=== PATIENT | female | born 1990 | race Caucasian/White ===

== ENCOUNTER 2019-03-02 11:23 | Emergency (ER) | payer OTHER ==
--- NOTE | 2019-03-02 11:34 | ER Document Report ---
ED Medical Screen (RME) - General Chief Complaint: Vomiting Stated Complaint: VOMITING,RECTAL BLEEDING Time Seen by Provider: 03/02/19 11:29 Mode of Arrival: Ambulatory Information source: Patient Notes: 28-year-old female presented to ED for complaint of nausea since yesterday vomiting since 2 AM this morning. She states she has had 8 or 9 emesis today. She states she also has had some medium to hard stools today and a large amount of red blood. She states she did have a history of a hernia and went to a therapist asst and they put a band around the hemorrhoid about 3 months ago the ba nd is now gone and she does not see a hemorrhoid but she did have a large amount of blood when she had her stool today. She states she does have some intermittent cramping in the lower abdomen. She smokes 1 or 2 cigarettes a day occasionally drinks no drugs. Her abdomen is soft minimal tenderness to the pelvic area but none to the abdomen bowel sounds are present. I have greeted and performed a rapid initial assessment of this patient. A comprehensive ED assessment and evaluation of the patient, analysis of test results and completion of medical decision making process will be conducted by an additional ED providers.
[2019-03-02 11:57] LABS: ABSOLUTE LYMPHOCYTES (AUTO) 2.4 10^3/uL (0.5-4.7); ABSOLUTE MONOCYTES (AUTO) 0.6 10^3/uL (0.1-1.4); ABSOLUTE NEUT (AUTO) 8.4 10^3/uL (1.7-8.2); BASOPHILS % (AUTO) 0.4 % (0-2); EOSINOPHILS % (AUTO) 0.4 % (0-6); HEMATOCRIT 43.8 % (36.0-47.0); HEMOGLOBIN 15.1 g/dL (12.0-15.5); LYMPHOCYTES % (AUTO) 20.8 % (13-45); MEAN CORPUSCULAR HEMOGLOBIN 31.2 pg (27.0-33.4); MEAN CORPUSCULAR HGB CONC 34.6 g/dL (32.0-36.0); MEAN CORPUSCULAR VOLUME 90 fl (80-97); MONOCYTES % (AUTO) 4.8 % (3-13); PLATELET COUNT 309 10^3/uL (150-450); RED BLOOD COUNT 4.85 10^6/uL (3.72-5.28); RED CELL DISTRIBUTION WIDTH 12.6 % (11.5-14.0); SEGMENTED NEUTROPHILS % (AUTO) 73.6 % (42-78); TOTAL CELLS COUNTED % (AUTO) 100 %; WHITE BLOOD COUNT 11.5 10^3/uL (4.0-10.5)
[2019-03-02 12:02] LABS: APPEARANCE,URINE CLEAR; BILIRUBIN,URINE NEGATIVE (NEGATIVE); COLOR,URINE YELLOW; GLUCOSE, URINE NEGATIVE (NEGATIVE); KETONES,URINE NEGATIVE (NEGATIVE); PROTEIN,URINE NEGATIVE (NEGATIVE); URINE SPECIFIC GRAVITY 1.021; UROBILINOGEN,URINE NEGATIVE mg/dL (<2.0)
[2019-03-02 12:17] LABS: ALBUMIN 5.2 g/dL (3.5-5.0); ALKALINE PHOSPHATASE 63 U/L (38-126); ANION GAP 15 (5-19); ASPARTATE AMINO TRANSFERASE 33 U/L (14-36); BILIRUBIN,DIRECT 0.1 mg/dL (0.0-0.4); BILIRUBIN,TOTAL 0.8 mg/dL (0.2-1.3); BLOOD UREA NITROGEN 12 mg/dL (7-20); CARBON DIOXIDE 24 mmol/L (22-30); CHLORIDE 106 mmol/L (98-107); GLUCOSE 92 mg/dL (75-110); POTASSIUM 4.5 mmol/L (3.6-5.0); TOTAL PROTEIN 8.6 g/dL (6.3-8.2)
--- NOTE | 2019-03-02 12:56 | RADIOLOGY REPORT (SQ) ---
EXAM DESCRIPTION: U/S NON-OB PELVIS TV W/O DOP COMPLETED DATE/TIME: 03/02/2019 12:34 pm REASON FOR STUDY: pelvic pain worse left hx pcos COMPARISON: None. TECHNIQUE: Dynamic and static grayscale images acquired of the pelvis via transvaginal approach and recorded on PACS. Additional selected color Doppler and spectral images recorded. LIMITATIONS: None. FINDINGS: UTERUS: Contour normal. No mass. ENDOMETRIAL STRIPE: IUD. No focal or generalized thickening. No masses. CERVIX: No nabothian cysts. RIGHT OVARY AND DOPPLER: Normal size. 1.8 cm Cyst. No worrisome masses. Normal arterial vascular fl ow without evidence for torsion. LEFT OVARY AND DOPPLER: Normal size. No worrisome masses. Normal arterial vascular flow without evide nce for torsion. FREE FLUID: None noted. OTHER: No other significant finding. IMPRESSION: Small cyst right ovary. TECHNICAL DOCUMENTATION: JOB ID: [id number] [employer]- All Rights Reserved Rev-08/24 Reading location - IP/workstation name: [email or web address]
--- NOTE | 2019-03-02 13:08 | ER Document Report ---
ED General - General Chief Complaint: Nausea/Vomiting Stated Complaint: VOMITING,RECTAL BLEEDING Time Seen by Provider: 03/02/19 11:29 Mode of Arrival: Ambulatory Information source: Patient Notes: 28-year-old female presents emergency department with complaints of some bilateral abdominal cramping that started yesterday. Reports she went to an arena in [place] last night ate some questionable pizza. Woke up at approximately 0200 this morning with nausea and vomiting. Reports she has vomited at least 8 times today. Last emesis was approximately 11:00 today. Patient is sitting on the exam bed drinking water at this time. Reports she feels better. She reports history of left ovarian cyst. Also reports of hemorrhoids with banding approximately 3 months ago. Last menstrual period was 1 month ago. Denies pain with void denies vaginal discharge. TRAVEL OUTSIDE OF THE [place] IN LAST 30 DAYS: No - HPI Onset: This morning Onset/Duration: Waxing and waning Quality of pain: Cramping Associated symptoms: Nausea, Vomiting Exacerbated by: Denies Relieved by: Denies Similar symptoms previously: No Recently seen / treated by doctor: No - Related Data Allergies/Adverse Reactions: No Known Allergies Allergy (Verified 03/02/19 11:33) Past Medical History - General Information source: Patient Last Menstrual Period: 1 month ago - Social History Smoking Status: Current Every Day Smoker Chew tobacco use (# tins/day): No Frequency of alcohol use: Social Drug Abuse: None Lives with: Family Family History: Malignancy Patient has suicidal ideation: No Patient has homicidal ideation: No Renal/ Medical History: Reports: Hx Ovarian Cysts Psychiatric Medical History: Reports: Hx Bipolar Disorder Past Surgical History: Reports: Other - Hemorrhoids banded Review of Systems - Review of Systems Notes: Review HPI for review of systems., All other systems negative Physical Exam - Vital signs Vitals: Temp Pulse Resp BP Pulse Ox 98.0 F 102 H 16 151/82 H 98 03/02/19 11:26 03/02/19 11:26 03/02/19 11:26 03/02/19 11:26 03/02/19 11:26 - General General appearance: Appears well, Alert In distress: None - HEENT Head: Normocephalic Eyes: Normal Conjunctiva: Normal Extraocular movements intact: Yes Mucous membranes: Moist Neck: Normal, Supple. No: Lymphadenopathy - Respiratory Respiratory status: No respiratory distress Chest status: Nontender Breath sounds: Normal Chest palpation: Normal - Cardiovascular Rhythm: Regular Heart sounds: Normal auscultation Murmur: No - Abdominal Inspection: Normal Distension: No distension Bowel sounds: Normal Tenderness: Nontender Organomegaly: No organomegaly - Rectal Tenderness: Yes Stool: Heme negative Hemorrhoids: None - Back Back: Normal. No: CVA tenderness - Extremities General upper extremity: Normal ROM, Normal strength General lower extremity: Normal ROM, Normal strength - Neurological Neuro grossly intact: Yes Cognition: Normal Orientation: AAOx4 Christina Coma Scale Eye Opening: Spontaneous [place] Coma Scale Verbal: Oriented [place] Coma Scale Motor: Obeys Commands Christina Coma Scale Total: 15 Speech: Normal - Psychological Associated symptoms: Normal affect, Normal mood - Skin Skin Temperature: Warm Skin Moisture: Dry Skin Color: Normal Course - Re-evaluation Re-evalutation: 03/02/19 12:59 28-year-old female presents with complaints of nausea and vomiting bilateral abdominal pain. Reports her abdominal pain started yesterday. Reports she woke up at approximately 2:00 this morning started vomiting. Has vomited at least 8 times today. Patient is now drinking p.o. fluids without problems denies nausea denies abdominal pain. Also reports she noted blood on her stool and in the water today. reports normal consistency of stool. Did not strain. Stool negative for heme. Reports she recently had hemorrhoids banded. She has not followed up with her GI Doctor, Dr. Young. Labs unremarkable ultrasound shows right ovarian cyst. Stool is negative for blood. Patient is drinking water at the bedside. Suspect patient may have had a reaction to the pizza she ate last night. She is feeling better. She was adv ised on clear liquids advance as tolerated. She was also advised to follow-up with Dr. Young to discuss the blood she noticed. She was discharged home with a work note and Zofran in case she became nauseated again. She was also instructed to return the emergency department for return of symptoms concerns pain. She verbalized understanding to all instructions. 03/02/19 11:36 03/02/19 11:36 MCV 90 fl (80-97) 03/02/19 11:36 MCH 31.2 pg (27.0-33.4) 03/02/19 11:36 MCHC 34.6 g/dL (32.0-36.0) 03/02/19 11:36 RDW 12.6 % (11.5-14.0) 03/02/19 11:36 Seg Neutrophils % 73.6 % (42-78) 03/02/19 11:36 Chloride 106 mmol/L (98-107) 03/02/19 11:36 Carbon Dioxide 24 mmol/L (22-30) 03/02/19 11:36 Anion Gap 15 (5-19) 03/02/19 11:36 Est GFR ( Amer) > 60 (>60) 03/02/19 11:36 Glucose 92 mg/dL (75-110) 03/02/19 11:36 Calcium 11.0 mg/dL (8.4-10.2) H 03/02/19 11:36 Total Bilirubin 0.8 mg/dL (0.2-1.3) 03/02/19 11:36 AST 33 U/L (14-36) 03/02/19 11:36 Alkaline Phosphatase 63 U/L (38-126) 03/02/19 11:36 Total Protein 8.6 g/dL (6.3-8.2) H 03/02/19 11:36 Albumin 5.2 g/dL (3.5-5.0) H 03/02/19 11:36 Serum HCG, Qual NEGATIVE (NEGATIVE) 03/02/19 11:36 Urine Color YELLOW 03/02/19 11:36 Urine Appearance CLEAR 03/02/19 11:36 Urine pH 6.0 (5.0-9.0) 03/02/19 11:36 Ur Specific Waucoma 1.021 03/02/19 11:36 Urine Protein NEGATIVE mg/dL (NEGATIVE) 03/02/19 11:36 Urine Glucose (UA) NEGATIVE mg/dL (NEGATIVE) 03/02/19 11:36 Urine Ketones NEGATIVE mg/dL (NEGATIVE) 03/02/19 11:36 Urine Blood NEGATIVE (NEGATIVE) 03/02/19 11:36 Urine RBC (Auto) 2 /HPF 03/02/19 11:36 Transvaginal US 03/02/19 11:35 IMPRESSION: Small cyst right ovary. 03/02/19 13:18 Dictation of this chart was performed using voice recognition software; therefore, there may be some unintended grammatical errors. - Vital Signs Vital signs: Temp Pulse Resp BP Pulse Ox 98.7 F 80 16 125/88 H 99 03/02/19 13:30 03/02/19 13:30 03/02/19 11:27 03/02/19 13:30 03/02/19 13:30 - Laboratory Result Diagrams: 03/02/19 11:36 03/02/19 11:36 Laboratory results interpreted by me: 03/02/19 03/02/19 11:36 11:36 WBC 11.5 H Absolute Neuts (auto) 8.4 H Calcium 11.0 H Total Protein 8.6 H Albumin 5.2 H - Diagnostic Test Radiology reviewed: Image reviewed, Reports reviewed Discharge - Discharge Clinical Impression: Abdominal pain Qualifiers: Abdominal location: unspecified location Qualified Code(s): R10.9 - Unspecified abdominal pain Nausea & vomiting Qualifiers: Vomiting type: unspecified Vomiting Intractability: non-intractable Qualified Code(s): R11.2 - Nausea with vomiting, unspecified Ovarian cyst Qualifiers: Laterality: right Qualified Code(s): N83.201 - Unspecified ovarian cyst, right side Condition: Stable Disposition: HOME, SELF-CARE Instructions: Abdominal Pain ([facility]), Antinausea Medication ([facility]), [employer] Distributor Doctors, Ovarian Cyst ([facility]), Vomiting ([facility]) Additional Instructions: *You have been evaluated for abdominal pain, nausea vomiting, ovarian cyst *Take medication as prescribed Clear liquids advance diet as tolerated *Follow up with a primary care provider within 1 week for recheck 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 Your blood pressure was elevated today. This may be because you were anxious, in pain or because you need medication. It is important to follow up with your primary care provider for full evaluation. Forms: Elevated Blood Pressure, Return to Work
[2019-03-02] MEDS ORDERED: ONDANSETRON ODT 4 MG TAB (6 TAB/ER DISP) PO PRN (13:10)
[2019-03-02 13:33] VITALS: BP 125/88
== END 2019-03-02 13:41 | disposition home or self-care (01) ==
LOC: ER 11:23
DX: R11.2 Nausea with vomiting, unspecified (principal); N83.201 Unspecified ovarian cyst, right side; R10.30 Lower abdominal pain, unspecified; F17.200 Nicotine dependence, unspecified, uncomplicated; Z87.19 Personal history of other diseases of the digestive system; Z98.890 Other specified postprocedural states
CPT/HCPCS: 36415; 76830; 80053; 81001; 84703; 85025; 99284

== ENCOUNTER 2020-01-13 18:18 | Emergency (ER) | payer OTHER ==
--- NOTE | 2020-01-13 19:20 | ER Document Report ---
ED Medical Screen (RME) - General Chief Complaint: Vag Bleeding, +preg <12wks Stated Complaint: VAGINAL BLEEDING Time Seen by Provider: 01/13/20 19:04 TRAVEL OUTSIDE OF THE [place] IN LAST 30 DAYS: No - HPI Notes: 01/13/20 19:15 29-year-old female who is approximately 7 weeks , , lmp November 21 who had 2+ test in the last 2 weeks ago presents to the emergency room for 6 days of vaginal spotting and intermittent heavy bleeding. Patient was sent over by [facility] because her hCG levels on January 06 were 219 and her hCG levels on January 07 was 264, [facility] was concerned that her hCG was not doubling and with her vaginal bleeding that she may be experiencing ectopic . eports some scant left > right lower abdominal pain. Denies any chest pains or shortness of breath. she roughly goes between 1-2 pads a day I have greeted and performed a rapid initial assessment of this patient. A comprehensive ED assessment and evaluation of the patient, analysis of test resu lts and completion of the medical decision making process will be conducted by additional ED providers. PHYSICAL EXAMINATION: GENERAL: Well-appearing, well-nourished and in no acute distress. HEAD: Atraumatic, normocephalic. EYES: Pupils equal round extraocular movements intact, conjunctiva are normal. NECK: Normal range of motion CV: s1, s2 regular LUNGS: No respiratory distress abd: lower abd pain L>R, no cva tenderness appreciated - Related Data Allergies/Adverse Reactions: No Known Allergies Allergy (Verified 03/02/19 11:33) Past Medical History Renal/ Medical History: Reports: Hx Ovarian Cysts Psychiatric Medical History: Reports: Hx Bipolar Disorder Past Surgical History: Reports: Other - Hemorrhoids banded Physical Exam - Vital signs Vitals: Temp Pulse Resp BP Pulse Ox 98.3 F 88 16 133/66 H 99 01/13/20 18:36 01/13/20 18:36 01/13/20 18:36 01/13/20 18:36 01/13/20 18:36 Course - Vital Signs Vital signs: Temp Pulse Resp BP Pulse Ox 98.3 F 88 16 133/66 H 99 01/13/20 18:36 01/13/20 18:36 01/13/20 18:36 01/13/20 18:36 01/13/20 18:36
[2020-01-13 19:42] LABS: ABSOLUTE BASOPHILS # (AUTO) 0.1 10^3/uL (0.0-0.2); ABSOLUTE EOSINOPHILS # (AUTO) 0.2 10^3/uL (0.0-0.6); ABSOLUTE LYMPHOCYTES (AUTO) 3.2 10^3/uL (0.5-4.7); ABSOLUTE MONOCYTES (AUTO) 0.6 10^3/uL (0.1-1.4); ABSOLUTE NEUT (AUTO) 3.9 10^3/uL (1.7-8.2); BASOPHILS % (AUTO) 0.7 % (0-2); EOSINOPHILS % (AUTO) 2.4 % (0-6); HEMATOCRIT 37.1 % (36.0-47.0); HEMOGLOBIN 13.5 g/dL (12.0-15.5); LYMPHOCYTES % (AUTO) 40.4 % (13-45); MEAN CORPUSCULAR HGB CONC 36.4 g/dL (32.0-36.0); MEAN CORPUSCULAR VOLUME 91 fl (80-97); MONOCYTES % (AUTO) 7.1 % (3-13); PLATELET COUNT 252 10^3/uL (150-450); RED BLOOD COUNT 4.09 10^6/uL (3.72-5.28); RED CELL DISTRIBUTION WIDTH 12.3 % (11.5-14.0); SEGMENTED NEUTROPHILS % (AUTO) 49.4 % (42-78); TOTAL CELLS COUNTED % (AUTO) 100 %; WHITE BLOOD COUNT 7.9 10^3/uL (4.0-10.5)
[2020-01-13 19:50] LABS: AMORPHOUS SEDIMENT,URINE TRACE /HPF; APPEARANCE,URINE CLOUDY; BILIRUBIN,URINE NEGATIVE (NEGATIVE); COLOR,URINE YELLOW; GLUCOSE, URINE NEGATIVE (NEGATIVE); KETONES,URINE NEGATIVE (NEGATIVE); LEUKOCYTE ESTERASE,URINE NEGATIVE (NEGATIVE); NITRITE,URINE NEGATIVE (NEGATIVE); PROTEIN,URINE 30 mg/dL (NEGATIVE); UROBILINOGEN,URINE NEGATIVE mg/dL (<2.0)
[2020-01-13 19:53] LABS: ALBUMIN 4.5 g/dL (3.5-5.0); ALKALINE PHOSPHATASE 64 U/L (38-126); ANION GAP 10 (5-19); ASPARTATE AMINO TRANSFERASE 35 U/L (14-36); BILIRUBIN,DIRECT 0.2 mg/dL (0.0-0.4); BILIRUBIN,TOTAL 0.5 mg/dL (0.2-1.3); BLOOD UREA NITROGEN 19 mg/dL (7-20); CALCIUM 9.4 mg/dL (8.4-10.2); CARBON DIOXIDE 25 mmol/L (22-30); CHLORIDE 103 mmol/L (98-107); GLUCOSE 100 mg/dL (75-110); POTASSIUM 3.8 mmol/L (3.6-5.0); TOTAL PROTEIN 7.4 g/dL (6.3-8.2)
--- NOTE | 2020-01-13 21:54 | RADIOLOGY REPORT (SQ) ---
US PELVIS HISTORY: Early . Pelvic pain. COMPARISON: None. TECHNIQUE: Grayscale, color Doppler, and spectral Doppler ultrasound images of the pelvis were obtained. FINDINGS: The uterus is retroverted and measures 7.0 x 5.5 x 4.2 cm. No intrauterine gestation is identified. The cervix measures 2.3 cm and is closed. The endometrium measures 1.6 cm. Both ovaries are normal in size and contain normal follicles, with the right ovary measuring 3.4 x 2.6 cm and the left ovary measuring 2.7 x 1.8 cm. Normal color Doppler blood flow is seen in both ovaries. There is free fluid in the pelvic cul-de-sac and bilateral adnexa. IMPRESSION: 1. No intrauterine is seen. Correlate with beta hCG values and consider short-term follow-up ultrasound imaging. 2. Normal ovaries.
[2020-01-14] MEDS ORDERED: ACETAMINOPHEN 325 MG TABLET PO ONE (01:27)
--- NOTE | 2020-01-14 01:29 | ER Document Report ---
ED GI/ - General Chief Complaint: Vaginal Bleeding Stated Complaint: VAGINAL BLEEDING Time Seen by Provider: 01/13/20 19:04 Primary Care Provider: ADIEL LONG MD [ACTIVE STAFF] - Follow up tomorrow (Call tomorrow for an outpatient follow-up appointment.) Mode of Arrival: Ambulatory Information source: Patient Notes: 29-year-old female who states she is approximately 7 weeks 4 para 0 with recent in November presents to the emergency room with persistent vaginal bleeding. Patient states she was seen at [facility] on January 06 had a quant of 219 and states the ultrasound did not show an intrauterine . She followed up with [facility] on the third had a repeat quant when she just got the results of today of 264. She was referred to the emergency rule out ectopic. She is complaining of some mild left lower quadrant pain. States bleeding has been intermittent similar to a menstrual cycle. She currently does not have an SAL[employer] CL[employer]. TRAVEL OUTSIDE OF THE [place] IN LAST 30 DAYS: No - Related Data Allergies/Adverse Reactions: No Known Allergies Allergy (Verified 03/02/19 11:33) Past Medical History - General Information source: Patient - Social History Smoking Status: Current Every Day Smoker Chew tobacco use (# tins/day): No Frequency of alcohol use: Occasional Drug Abuse: Marijuana Family History: Malignancy Renal/ Medical History: Reports: Hx Ovarian Cysts Psychiatric Medical History: Reports: Hx Bipolar Disorder Past Surgical History: Reports: Other - Hemorrhoids banded Review of Systems - Review of Systems Constitutional: No symptoms reported EENT: No symptoms reported Cardiovascular: No symptoms reported Gastrointestinal: No symptoms reported Female Genitourinary: , Vaginal bleeding, Other - Left lower pelvic pain Skin: No symptoms reported Neurological/Psychological: No symptoms reported -: Yes All other systems reviewed and negative Physical Exam - Vital signs Vitals: Temp Pulse Resp BP Pulse Ox 98.3 F 88 16 133/66 H 99 01/13/20 18:36 01/13/20 18:36 01/13/20 18:36 01/13/20 18:36 01/13/20 18:36 - Notes Notes: GENERAL: Mild acute distress, non-toxic appearance. HEAD: Normal with no signs of head trauma. EYES: PERRLA, EOMI, conjunctiva normal, no discharge. EARS: Hearing grossly intact. NOSE: Normal. THROAT: Oropharynx is normal. NECK: Normal range of motion, no tenderness, supple, no lymphadenopathy, No adenopathy, no JVD. CHEST: Clear breath sounds bilaterally. No wheezes, rales, or rhonchi. CARDIAC: Regular rate and rhythm. S1 and S2, without murmurs, gallops, or rubs. VASCULAR: No Edema. Peripheral pulses normal and equal in all extremities. ABDOMEN: Normal and soft with no tenderness, no masses or pulsatile masses. No organomegaly. Positive bowel sounds x4. No CVA tenderness noted bilaterally. GASTROINTESTINAL: Bowel sounds normal GENITOURINARY: Patient refused pelvic exam LYMPATHTIC: No lymphadenopathy noted. MUSCULOSKELETAL: Good range of motion of all major joints. Extremities without clubbing, cyanosis or edema. NEUROLOGICAL: Alert and oriented x 3. No focal sensory or strength deficits. Speech normal. Follows commands appropriately. PSYCHIATRIC: Normal Affect, judgement and mood. SKIN: Normal appearance with no rashes or lesions. Course - Re-evaluation Re-evalutation: 01/14/20 01:26 Patient is resting comfortably with decreased pain. Reviewed all test results with patient. Ultrasound notes closed cervix. Patient refused pelvic exam. States she is only lightly bleeding at this time. Reviewed declining hCG G from January 09. Patient with O+ blood reviewed from previous records. Patient was counseled on the importance of outpatient follow-up with [facility] [facility] for decreasing hCG. On-call physician was provided. Tylenol as needed for pain. Patient was given strict return to the emergency room guidelines. Return for any new or worsening symptoms. All questions were answered. Patient verbalized understanding and agrees with plan of care. 01/14/20 01:27 01/14/20 02:06 - Vital Signs Vital signs: Temp Pulse Resp BP Pulse Ox 98.3 F 86 20 127/85 H 100 01/13/20 19:09 01/14/20 01:45 01/14/20 01:45 01/14/20 01:45 01/14/20 01:45 - Laboratory Result Diagrams: 01/13/20 19:22 01/13/20 19:22 Laboratory results interpreted by me: 01/13/20 01/13/20 01/13/20 19:22 19:22 19:22 MCHC 36.4 H ALT 41 H Beta HCG, Quant 229.88 H Urine Protein 30 H Urine Blood LARGE H Urine Ascorbic Acid 20 H - Diagnostic Test Radiology reviewed: Reports reviewed Discharge - Discharge Clinical Impression: Threatened miscarriage in early Condition: Stable Disposition: HOME, SELF-CARE Instructions: Threatened Miscarriage ([facility]) Additional Instructions: Tylenol as needed for pain. Outpatient follow-up with [facility] TE[facility] in 2 days as discussed. Return to the emergency room for any new or worsening symptoms. Forms: Return to Work Referrals: ADIEL LONG MD [ACTIVE STAFF] - Follow up tomorrow (Call tomorrow for an outpatient follow-up appointment.)
[2020-01-14 01:48] VITALS: BP 127/85
== END 2020-01-14 01:47 | disposition home or self-care (01) ==
LOC: ER 18:18
DX: O20.0 Threatened abortion (principal); R10.32 Left lower quadrant pain; O99.331 Smoking (tobacco) complicating pregnancy, first trimester; Z3A.01 Less than 8 weeks gestation of pregnancy
CPT/HCPCS: 36415; 76817; 80053; 81001; 84702; 85025; 86900; 86901; 99284

== ENCOUNTER 2020-01-23 12:28 | Day surgery (SDC) | payer OTHER ==
[~2020-01-23 12:28] MED LIST: GLYCOPYRROLATE 1 MG/5 ML VIAL ONE; METOCLOPRAMIDE HCL INJ/PF 10 MG/2 ML SDV ONE; NEOSTIGMINE METHYLSULFATE 10 MG/10 ML VIAL ONE; ROCURONIUM BROMIDE INJ 50 MG/5 ML VIAL IV ONE; SUCCINYLCHOLINE CHLORIDE INJ 200 MG/10 ML VIAL ONE
[2020-01-23 13:02] LABS: ABSOLUTE EOSINOPHILS # (AUTO) 0.2 10^3/uL (0.0-0.6); ABSOLUTE LYMPHOCYTES (AUTO) 2.5 10^3/uL (0.5-4.7); ABSOLUTE MONOCYTES (AUTO) 0.4 10^3/uL (0.1-1.4); ABSOLUTE NEUT (AUTO) 3.8 10^3/uL (1.7-8.2); BASOPHILS % (AUTO) 0.7 % (0-2); EOSINOPHILS % (AUTO) 2.7 % (0-6); HEMATOCRIT 39.9 % (36.0-47.0); HEMOGLOBIN 13.8 g/dL (12.0-15.5); LYMPHOCYTES % (AUTO) 35.9 % (13-45); MEAN CORPUSCULAR HEMOGLOBIN 31.9 pg (27.0-33.4); MEAN CORPUSCULAR HGB CONC 34.6 g/dL (32.0-36.0); MEAN CORPUSCULAR VOLUME 92 fl (80-97); MONOCYTES % (AUTO) 6.2 % (3-13); PLATELET COUNT 284 10^3/uL (150-450); RED BLOOD COUNT 4.34 10^6/uL (3.72-5.28); RED CELL DISTRIBUTION WIDTH 12.6 % (11.5-14.0); SEGMENTED NEUTROPHILS % (AUTO) 54.5 % (42-78); TOTAL CELLS COUNTED % (AUTO) 100 %; WHITE BLOOD COUNT 6.9 10^3/uL (4.0-10.5)
[2020-01-23] MEDS ORDERED: CEFAZOLIN 2 GM/D5W RTU 2 GM/50 ML RTUPB IV ONE ×2 (13:06→13:45)
[2020-01-23] MEDS ORDERED: ONDANSETRON HCL INJ/PF 4 MG/2 ML SDV ONE (13:10)
[2020-01-23] MEDS ORDERED: PROPOFOL INJ 200 MG/20 ML VIAL IV ONE (13:10)
[2020-01-23] MEDS ORDERED: FENTANYL CITRATE INJ/PF 250 MCG/5 ML AMPULE ONE (13:10)
[2020-01-23] MEDS ORDERED: MIDAZOLAM 2 MG/2 ML INJ ONE (13:10)
[2020-01-23] MEDS ORDERED: LIDOCAINE 2% INJ-PF (20 MG/ML) 10 ML AMPUL ONE (13:10)
[2020-01-23 13:22] LABS: ALBUMIN 5.1 g/dL (3.5-5.0); ALKALINE PHOSPHATASE 61 U/L (38-126); ANION GAP 12 (5-19); ASPARTATE AMINO TRANSFERASE 33 U/L (14-36); BILIRUBIN,DIRECT 0.3 mg/dL (0.0-0.4); BILIRUBIN,TOTAL 0.8 mg/dL (0.2-1.3); BLOOD UREA NITROGEN 13 mg/dL (7-20); CALCIUM 9.8 mg/dL (8.4-10.2); CARBON DIOXIDE 23 mmol/L (22-30); CHLORIDE 104 mmol/L (98-107); GLUCOSE 95 mg/dL (75-110); POTASSIUM 4.2 mmol/L (3.6-5.0); TOTAL PROTEIN 8.3 g/dL (6.3-8.2)
[2020-01-23] MEDS ORDERED: NORMAL SALINE 1000 ML 1,000 ML IV PRN (13:33)
[2020-01-23] MEDS ORDERED: BUPIVACAINE HCL 0.25 % INJ/PF (2.5 MG/1 ML) 30 ML VIAL ONE (13:43)
[2020-01-23] MEDS ORDERED: PROMETHAZINE HCL INJ 25 MG/1 ML VIAL IV PRN ×2 (14:35)
[2020-01-23] MEDS ORDERED: FENTANYL CITRATE INJ/PF 100 MCG/2 ML AMPUL IV PRN ×3 (14:35)
[2020-01-23] MEDS ORDERED: MEPERIDINE HCL/PF INJ 25 MG/1 ML DISP.SYRIN IV PRN (14:35)
[2020-01-23] MEDS ORDERED: ONDANSETRON HCL INJ/PF 4 MG/2 ML SDV IV PRN ×2 (14:35→16:16)
[2020-01-23] MEDS ORDERED: DIPHENHYDRAMINE HCL 50 MG/ML VIAL IV PRN (14:35)
[2020-01-23 14:39] LABS: CHLAM PCR NOT DETECTED (NOT DETECT)
[2020-01-23] MEDS ORDERED: IBUPROFEN 800 MG TABLET PO PRN (15:05)
[2020-01-23] MEDS ORDERED: OXYCODONE-ACETAMINOPHEN 5-325 MG TABLET PO PRN ×3 (15:05→16:16)
[2020-01-23] MEDS ORDERED: RINGERS SOLUTION,LACTATED 1,000 ML IV PRN (15:05)
[2020-01-23] MEDS ORDERED: KETOROLAC TROMETHAMINE INJ/PF 30 MG/1 ML SDV IV PRN (15:05)
--- NOTE | 2020-01-23 15:14 | Discharge Summary ---
Discharge Summary (SDC) - Discharge Final Diagnosis: Left tubal Ectopic Date of Surgery: 01/23/20 Discharge Date: 01/23/20 Condition: Good Prescriptions: Ondansetron [Zofran Odt 4 mg Tablet] 4 mg PO Q4HP PRN #30 tab.rapdis PRN Reason: Oxycodone HCl/Acetaminophen [Percocet 5-325 mg Tablet] 2 tab PO ASDIR PRN 7 Days #28 tab PRN Reason: Referrals: MUSA YANG FNP-C [Primary Care Provider] - Discharge Diet: As Tolerated Respiratory Treatments at Home: Deep Breathing/Coughing Discharge Activity: Activity As Tolerated Home Care Assistance: None Needed Report the Following to Your Physician Immediately: Shortness of Breath, Increase in Pain, Fever over 101 Degrees, Increased Vaginal Bleed
--- NOTE | 2020-01-23 15:25 | Brief Operative Note ---
BRIEF OPERATIVE REPORT DATE OF SURGERY: 01/23/20 TIME OF SURGERY: 15:00 PREOPERATIVE DIAGNOSIS: LLQ pain, positive preg, Adnexal mass, suspect ectopic on left, Hemoperitoneum POSTOPERATIVE DIAGNOSIS: ERIC - Left fallopian tube ectopic SURGEON: DEVANG ESCOBAR FINDINGS: Left fallopian tube ectopic extending throughout tube. Hemoperitoneum noted 300mg. Fallopian tube on left very abnormal in appearance and blunted fimbriae. Right fallopian tube normal. Left and right ovary normal. IVF 1000ml, UOP 200ml COMPLICATIONS: none ESTIMATED BLOOD LOSS: 10ml TISSUE REMOVED OR ALTERED: left fallopian tube with ectopic TECHNICAL PROCEDURE: Operative Laparoscopy with Left salpingectomy
[2020-01-23] MEDS ORDERED: OXYCODONE-ACETAMINOPHEN 5-325 MG TABLET ONE (16:03)
[2020-01-23] MEDS ORDERED: HYDROMORPHONE HCL INJ/PF 2 MG/ML AMPULE IV PRN (16:16)
[2020-01-23 17:58] VITALS: BP 113/72
--- NOTE | 2020-01-23 19:08 | Operative Report ---
Operative Report DATE OF SURGERY: 01/23/20 PREOPERATIVE DIAGNOSIS: LLQ pain, positive preg, Adnexal mass, suspect ectopic on left, Hemoperitoneum POSTOPERATIVE DIAGNOSIS: ERIC - Left fallopian tube ectopic OPERATION: Operative Laparoscopy with Left salpingectomy and evacuation of hemoperitoneum SURGEON: DEVANG ESCOBAR ANESTHESIA: GA TISSUE REMOVED OR ALTERED: left fallopian tube with ectopic COMPLICATIONS: None ESTIMATED BLOOD LOSS: 10 INTRAOPERATIVE FINDINGS: approximately 300mg of hemoperitoneum and some extending to level of liver. enlarged very distended and abnormal appearing left fallopian tube with very blunted ends and complex clot extending from fimbriae. Entire left tube inflammed and ectopic and clot extend from fimbriae almost to cornu stopping just short of cornu. Right fallopian tube normal. Bilateral ovaries normal. PROCEDURE: Estimated blood loss: [10ml surgical plus 300ml of hemoperitoneum] IV fluids: [1000ml] Urine output: [200ml] Indications: [29yo with abdominal pain upon presentation to the [facility] appointment today. Prior BHCG approx 280 a couple weeks ago. She has been bleeding for 17 days. NO IUP on US in the office today. Reviewed US in office with 5cm adnexal mass and blood in pelvis noted. Reviewed recommendations for Operative Laparoscopy with removal of ectopic and possible Left salpingectomy] Procedure: The patient was taken to the negative pressure room where general anesthesia was obtained without difficulty then transported to operating room. The patient was then examined under anesthesia with findings as noted above with a small anteverted uterus. She was then placed in dorsal supine lithotomy position and prepped and draped in the normal sterile fashion. Sponge stick was placed in the vagina for uterine manipulation. Attention was then turned to the patient's abdomen where a 5 mm infraumbilical skin incision was then made. The Optiview trocar with 0 laparoscope was then advanced without difficulty under direct visualization with the Optiview trocar. This was performed while tenting the abdominal wall and these will fashion. Intraperitoneal placement was confirmed by the direct visualization. Pneumoperitoneum was then obtained with approximately 4 L carbon dioxide gas. Survey of the patient's abdomen and pelvis revealed findings as noted above. A second skin incision was then made approximately 3 cm superior 4 cm medial to the anterior superior iliac spine on the left and then a third skin incision was made approximately 3 cm superior to the lower incision. These incisions were made under direct visualization with the laparoscope. The second and third trochars were then advanced under direct visualization of the laparoscope at the sites. The hemoperitoneum was evacuated. The right ovary was noted to be normal. Attention was then turned to the left adnexa at which time the left fallopian tube was identified containing ectopic and was abnormal in appearance as above. LigaSure device was then used to clamp and cauterize and cut the mesosalpinx extending from the fimbriated end of the left fallopian tube to the uterine cornual thus removing the left fallopian tube in its entirety. The left fallopian tube and ectopic were removed easily with the endobag. All operative sites were visualized and noted to be hemostatic. The 2 additional trochars on the patient's left were then removed under direct visualization. The 10 mm trocar w as then removed after abdominal insufflation was removed. The fascia at the 10 mm trocar site was closed with 0 Vicryl on a UR 6 needle. The skin at all trocar sites were closed with 3-0 Monocryl in a subcuticular fashion with overlying Exofin. Ancef 2 grams were given prior to procedure. After completion of skin closure of the trocar sites attention was then turned to the vagina where the sponge stick uterine manipulator was removed. Sponge lap needle and instrument counts were correct 3. The patient tolerated the procedure well and was taken to the recovery area awake and in stable condition.
== END 2020-01-23 17:10 | disposition home or self-care (01) ==
LOC: OROUT 12:28
PROVIDERS: ATTEND Student in an Organized Health Care Education/Training Program
DX: O00.102 Left tubal pregnancy without intrauterine pregnancy (principal); K66.1 Hemoperitoneum; Z87.891 Personal history of nicotine dependence
CPT/HCPCS: 59151; 86900; 86901; 36415; 86850; 84702; 85025; 80053; 87491; 87591; 88305 ×2; 99140; 00840; J2250; J3490 ×3; J3010; J2765; J2710; J0330; J2405; J2704; J0690; 840